=== PATIENT | female | born 1945 | race Caucasian/White ===

== ENCOUNTER 2022-01-25 12:01 | Outpatient (CLI) | payer MEDICARE, OTHER, SELFPAY ==
--- NOTE | 2022-01-25 12:30 | XR_ITS ---
WS: [id number] XR knee RT 3V* [id number] REASON FOR EXAM: PAIN IN RIGHT KNEE FINDINGS: No fracture or focal bone lesion. Mild narrowing of the medial knee joint space with moderate subchondral sclerosis of the medial tibia l plateau tibia and medial femoral condyle. Small marginal osteophytes. Lateral knee joint space is intact and relatively well-preserved. Mild narrowing of the patellofemoral joint space with mild subchondral sclerosis and small osteophyto sis of the patella and small osteophyte of the medial femoral condyle. No soft tissue abnormality. 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
== END 2022-01-25 12:02 | disposition home or self-care (01) ==
PROVIDERS: PCP Nurse Practitioner Family; Visit Provider Nurse Practitioner Family
DX: M17.11 Unilateral primary osteoarthritis, right knee
CPT/HCPCS: 73562

== ENCOUNTER → 2022-06-06 16:01 | Outpatient (BNVA) | payer MEDICARE, OTHER, SELFPAY | PROVIDERS: PCP Nurse Practitioner Family; Visit Provider Nurse Practitioner Family | DX: R21 Rash and other nonspecific skin eruption (principal) | CPT/HCPCS: 80053; 85025; 85651; 86140 ==

== ENCOUNTER 2023-07-11 10:14 | Outpatient (CLI) | payer MEDICARE, OTHER, SELFPAY ==
--- NOTE | 2023-07-11 10:22 | XRR_ITS ---
PROCEDURE INFORMATION: Exam: XR Right Foot Exam date and time: 07/11/2023 10:31 AM Age: 78 years old Clinical indication: Pain; Foot; Bilateral; Prior surgery; Surgery date: 6+ months; Surgery type: Curt bunion; Additional info: Bilateral foot pain/other hammer toe(s) TECHNIQUE: Imaging protocol: Radiologic exam of the right foot. Views: 3 or more views. COMPARISON: CR XR knee RT 3V* [id number] 01/25/2022 12:36 PM FINDINGS: Bones/joints: Healed radical bunionectomy fixed with a screw. No acute osseous, joint, or soft tissue abnormality. Mild plantar calcaneal spurring. Soft tissues: See Bones/joints finding. XR/XR foot RT min 3V* [id number] IMPRESSION: No acute findings.
--- NOTE | 2023-07-11 10:22 | XRR_ITS ---
PROCEDURE INFORMATION: Exam: XR Left Foot Exam date and time: 07/11/2023 10:31 AM Age: 78 years old Clinical indication: Pain; Foot; Bilateral; Prior surgery; Surgery date: 6+ months; Surgery type: Curt bunion; Additional info: Bilateral foot pain/other hammer toe(s) TECHNIQUE: Imaging protocol: Radiologic exam of the left foot. Views: 3 or more views. COMPARISON: No relevant prior studies available. FINDINGS: Bones/joints: Healed radical bunionectomy fixed with a screw. No fracture or dislocation. No acute osseous or joint abnormality. Plantar spurring. Soft tissues: Normal. XR/XR foot LT min 3V* [id number] IMPRESSION: No acute findings.
== END 2023-07-11 10:15 | disposition home or self-care (01) ==
LOC: RAD 10:19
PROVIDERS: PCP Nurse Practitioner Family; Visit Provider Nurse Practitioner Family
DX: M79.672 Pain in left foot (principal); M79.671 Pain in right foot; M20.40 Other hammer toe(s) (acquired), unspecified foot
CPT/HCPCS: 73630

== ENCOUNTER → 2023-07-22 13:17 | Outpatient (BNVA) | payer MEDICARE, OTHER, SELFPAY | PROVIDERS: PCP Nurse Practitioner Family; Visit Provider Podiatrist Foot & Ankle Surgery | DX: M72.2 Plantar fascial fibromatosis; M20.41 Other hammer toe(s) (acquired), right foot; M19.072 Primary osteoarthritis, left ankle and foot | CPT/HCPCS: 99203 ==

== ENCOUNTER 2023-08-22 11:15 | Outpatient (CLI) | payer MEDICARE, OTHER, SELFPAY | END 2023-08-22 11:16 | disposition home or self-care (01) | LOC: SPT 11:15 | PROVIDERS: PCP Nurse Practitioner Family; Visit Provider Podiatrist Foot & Ankle Surgery | DX: Z46.89 Encounter for fitting and adjustment of other specified devices (principal); M79.671 Pain in right foot; M79.672 Pain in left foot; M19.90 Unspecified osteoarthritis, unspecified site; M72.2 Plantar fascial fibromatosis | CPT/HCPCS: 97760; L3030 ==

== ENCOUNTER → 2023-09-30 10:37 | Outpatient (BNVA) | payer MEDICARE, OTHER, SELFPAY | PROVIDERS: PCP Nurse Practitioner Family; Visit Provider Podiatrist Foot & Ankle Surgery | DX: M72.2 Plantar fascial fibromatosis; M20.41 Other hammer toe(s) (acquired), right foot; M19.071 Primary osteoarthritis, right ankle and foot | CPT/HCPCS: 99213 ==

== ENCOUNTER → 2023-10-21 10:43 | Outpatient (BNVA) | payer MEDICARE, OTHER, SELFPAY | PROVIDERS: PCP Nurse Practitioner Family; Visit Provider Podiatrist Foot & Ankle Surgery | DX: M72.2 Plantar fascial fibromatosis; M20.41 Other hammer toe(s) (acquired), right foot; M19.91 Primary osteoarthritis, unspecified site | CPT/HCPCS: 99213 ==